=== PATIENT | female | born 1970 | race Caucasian/White ===

== ENCOUNTER 2020-03-26 13:16 | Outpatient (CLI) | payer OTHER, SELFPAY ==
--- NOTE | ~2020-03-26 | MM_ITS ---
EXAMINATION: MM screening julieth BI w elton HISTORY: Screening TECHNIQUE: Craniocaudal and mediolateral oblique 3-D tomosynthesis images were obtained and synthetic 2-D images were generated. CAD analysis was submitted and interpreted. COMPARISON: Comparison to multiple prior studies sequentially, with oldest reviewed study dated 03/21. BREAST PARENCHYMAL COMPOSITION: There are scattered areas of fibroglandular density. FINDINGS: There is no evidence of suspicious mass, calcification, or architectural distortion to sugg est malignancy in either breast. There has been no suspicious interval change. IMPRESSION: 1. No mammographic evidence of malignancy. 2. Recommend routine screening mammography in one year. BI-RADS Category 1: Negative Reviewed, dictated and finalized at location A.
== END 2020-03-26 13:17 | disposition home or self-care (01) ==
PROVIDERS: PCP Nurse Practitioner Adult Health; Visit Provider Nurse Practitioner Adult Health
DX: Z12.31 Encounter for screening mammogram for malignant neoplasm of breast (principal)
CPT/HCPCS: 77063; 77067

== ENCOUNTER 2020-07-09 07:05 | Outpatient (CLI) | payer OTHER, SELFPAY ==
--- NOTE | ~2020-07-09 | US_ITS ---
EXAMINATION: US pelvic complete w TV EXAM DATE: 07/09/2020 07:43 INDICATION: Pelvic pain. TECHNIQUE: Pelvic transabdominal and transvaginal sonogram was performed. There are multiple graysca le and Doppler images available for interpretation. There is no prior study for comparison. FINDINGS: Uterus measures 5.0 x 4.0 x 3.2 cm, is retroverted and morphologically normal. Endometria l stripe measures 6 mm, within normal limits. There is no free pelvic fluid. Right adnexa: The ovary measures 1.2 x 1.0 x 1.1 cm with focal marginal echogenic focus measuring 6 m m causing shadowing, uncertain whether or not this is within the ovary or next to it. This is of doub tful clinical significance. Ovarian vascular flow confirmed. Left adnexa: The ovary measures 1.3 x 1.2 x 0.8 cm and is morphologically normal. Ovarian vascular fl ow confirmed. IMPRESSION: Small echogenic focus along margin of right ovary, probably calcification. Ovaries are michelle th normal in size. Reviewed, dictated and finalized at location A. 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 Ovaries are both normal in size.
== END 2020-07-09 07:06 | disposition home or self-care (01) ==
LOC: ANHIMG 07:10
PROVIDERS: PCP Nurse Practitioner Adult Health; Visit Provider Nurse Practitioner
DX: R10.2 Pelvic and perineal pain (principal)
CPT/HCPCS: 76830; 76856

== ENCOUNTER 2021-05-07 07:25 | Outpatient (CLI) | payer OTHER, SELFPAY ==
--- NOTE | ~2021-05-07 | MM_ITS ---
EXAMINATION: MM screening julieth BI w elton HISTORY: Screening mammogram TECHNIQUE: Craniocaudal and mediolateral oblique 3-D tomosynthesis images were obtained and synthetic 2-D images were generated. CAD analysis was submitted and interpreted. COMPARISON: 03/26/2020, 05/24/2017 bilateral screening mammogram examinations BREAST PARENCHYMAL COMPOSITION: There are scattered areas of fibroglandular density. FINDINGS: There is no evidence of suspicious mass, calcification, or architectural distortion to sugg est malignancy in either breast. There has been no suspicious interval change. IMPRESSION: 1. No mammographic evidence of malignancy. 2. Recommend routine screening mammography in one year. BI-RADS Category 1: Negative Reviewed, dictated and finalized at location A. 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
== END 2021-05-07 07:26 | disposition home or self-care (01) ==
LOC: ANHIMG 07:27
PROVIDERS: PCP Nurse Practitioner Adult Health; Visit Provider Nurse Practitioner Adult Health
DX: Z12.31 Encounter for screening mammogram for malignant neoplasm of breast (principal)
CPT/HCPCS: 77063; 77067

== ENCOUNTER 2021-07-05 12:46 | Emergency (ER) | payer OTHER, SELFPAY ==
--- NOTE | ~2021-07-05 | CT_ITS ---
EXAMINATION: CT soft tissue neck w con EXAM DATE: 07/05/2021 15:30 INDICATION: right sided neck swelling . TECHNIQUE: Spiral CT of the neck was performed following intravenous injection of 75 mL Omnipaque 350 . Axial, coronal and sagittal images were reviewed. The dose-length product (DLP) for this examinat ion was 545.97 mGy-cm. The exposure was tailored according to patient size (auto mA exposure control ), and iterative reconstruction (ASIR) was used as additional dose reduction technique. There is no prior study for comparison. FINDINGS: Small amount of nonspecific right upper lobe groundglass opacity, nonspecific pneumonitis. Mild emphysema. The thyroid gland is unremarkable. The right mandibular gland is edematous without focal abscess. Structure which is believed to be the submandibular duct indicated on axial image 49 and 50, with a 2.5 mm calcification which could be sub mandibular duct stone indicated on axial image 46. Additional nonobstructing punctate cholelithiasis suspected also on axial image 50. Parotid glands are unremarkable. Mild generalized right-sided subma ndibular fat stranding. There is no cervical lymphadenopathy. There are no masses identified. The superior mediastinum is unremarkable. The airway is unremarkable. Parapharyngeal and pre-glottic fat planes are preserve d. The opacified vasculature is patent. The orbits are unremarkable. Visualized sinuses and mas toid air cells are well aerated. Moderate cervical arthropathy and C5-6 disc disease. IMPRESSION: 1. Right submandibular sialoadenitis, probably from obstructing 2.5 mm stone at the distal aspect of the duct indicated on axial image 46. 2. Small region right upper lobe airspace disease, nonspecific pneumonitis. Reviewed, dictated and finalized at location G. RATOR OPERATOR
[2021-07-05 12:50] VITALS: BP 134/83; PULSE 117; RESP 18; TEMP 36.6; O2SAT 96
[2021-07-05 13:17] LABS: Basophils Absolute Auto 0.1 K/mm3 (0.0-0.1); Basophils Percent Auto 0.6 % (0.2-1.2); Eosinophils Absolute Auto 0.3 K/mm3 (0-0.3); Eosinophils Percent Auto 3.3 % (0-4.4); Hematocrit 44.5 % (37.0-47.0); Hemoglobin 14.9 g/dL (12.0-15.0); Immature Granulocyte Absolute 0.04 K/mm3 (0.00-0.031); Immature Granulocyte Percent A 0.4 % (0-0.5); Lymphocytes Absolute Auto 3.03 K/mm3 (0.9-3.2); Mean Corpuscular HGB Conc 33.5 g/dl (32-36); Mean Corpuscular Hemoglobin 30.8 pg (26-34); Mean Corpuscular Volume 92.1 fl (80-100); Mean Platelet Volume 9.3 fl (7.4-10.4); Monocytes Absolute Auto 0.7 K/mm3 (0.1-0.6); Monocytes Percent Auto 7.1 % (2.6-8.5); Neutrophils Absolute Auto 5.6 K/mm3 (1.3-6.7); Neutrophils Percent Auto 57.6 % (45.5-73.1); Platelet Count Result 276 k/mm3 (150-375); Red Blood Count 4.83 M/mm3 (4.2-5.4); Red Cell Distribution Width 12.2 % (11.5-14.5); White Blood Count 9.8 K/mm3 (4.5-10.0)
[2021-07-05 13:31] LABS: Anion Gap 11 mmol/L (8-16); Blood Urea Nitrogen 15 mg/dL (7-17); CRP 0.6 mg/dL (<1.0); Calcium 10.1 mg/dL (8.4-10.2); Carbon Dioxide 27 mmol/L (22-30); Chloride 101 mmol/L (98-107); Estimated CRCL calculation 121 ml/min; Estimated Glomerular Filt Rate > 60; Glucose 174 mg/dL (65-110); Sodium 139 mmol/L (137-145)
--- NOTE | 2021-07-05 14:20 | ED.NECK ---
HPI - Neck Pain/Injury General Chief Complaint: Neck Pain/Injury Stated Complaint: Neck swelling Time Seen by Provider: 07/05/21 13:03 Source: patient Mode of arrival: ambulatory Limitations: no limitations History of Present Illness HPI Narrative: This is a 51 year old female that presents to the ER for right sided neck swelling noted since last night. Reports a painful area of swelling to the right side of the neck. Also reports some right ear pain. Reports she noted something white on the bottom of her mouth under her tongue. Denies fever, sore throat, or dyspnea. Review of Systems Review of Systems: CONSTITUTIONAL: Denies fever ENT: Reports otalgia. Denies sore throat RESPIRATORY: Denies dyspnea. All systems reviewed & are unremarkable except as noted in HPI and below PMFSH Past Medical History Medical History (Updated 07/05/21 @ 15:59 by Whit Voss PA-C) History of diabetes mellitus History of gastroesophageal reflux (GERD) History of hyperlipidemia Social History Social History (Updated 07/05/21 @ 14:20 by Whit Voss PA-C) Substance use: never Exam Narrative: GENERAL: Well-appearing, well-nourished, and in no acute distress. HEAD: Normocephalic, atraumatic. EYES: EOMI. ENT: Nares clear, no rhinorrhea or epistaxis. Mucous membranes moist. Oropharynx without tonsillar hypertrophy exudate or other lesions. Left TM pearly mix non-bulging. Right TM unable to be visualized as there is some cerumen. Bilateral external auditory canals are normal. Sialolith present on the floor of the mouth. No trismus NECK: Supple. Right sided submandibular swelling and pain, no overlying erythema CHEST: Clear to auscultation. No respiratory distress. No wheezes rales or rhonchi HEART: Regular rate and rhythm. No murmur heard. Normal peripheral pulses. EXTREMITIES: Normal range of motion. No edema. SKIN: Warm, dry, no rash. NEURO: No focal deficits. Alert and oriented x3. PSYCH: Normal mood and affect Course Vital Signs Vital signs: Vital Signs Temperature 97.8 F 07/05/21 12:50 Pulse Rate 117 H 07/05/21 12:50 Respiratory Rate 18 07/05/21 12:50 Blood Pressure 134/83 07/05/21 12:50 Pulse Oximetry 96 07/05/21 12:50 Temperature 97.8 F 07/05/21 12:50 Pulse Rate 117 H 07/05/21 12:50 Respiratory Rate 18 07/05/21 12:50 Blood Pressure 134/83 07/05/21 12:50 Pulse Oximetry 96 07/05/21 12:50 MDM - Neck Pain/Injury MDM Narrative Medical decision making narrative: Patient presents to the emergency department for right-sided neck swelling noted since last night. Mild swelling noted in the right submandibular region. Patient is afebrile and nontoxic appearing. CBC and metabolic panel without concerning findings. CT scan of the soft tissue neck shows a right submandibular sialadenitis probably from obstructing 2.5 mm stone at the distal aspect of the duct. Also shows small region of nonspecific pneumonitis. Patient will be started on oral antibiotics for possible infectious sialoadenitis, will also cover for the possible pneumonia. Patient is stable and felt appropriate for further outpatient evaluation. She was given warnings to return to the ER Lab Data Attestation: I reviewed the patient's lab results. Result diagrams: 07/05/21 13:11 07/05/21 13:11 Labs: Lab Results 07/05/21 07/05/21 Range/Units 13:11 13:11 WBC 9.8 (4.5-10.0) K/mm3 RBC 4.83 (4.2-5.4) M/mm3 Hgb 14.9 (12.0-15.0) g/dL Hct 44.5 (37.0-47.0) % MCV 92.1 (80-100) fl MCH 30.8 (26-34) pg MCHC 33.5 (32-36) g/dl RDW 12.2 (11.5-14.5) % Plt Count 276 (150-375) k/mm3 MPV 9.3 (7.4-10.4) fl Immature Gran % (Auto) 0.4 (0-0.5) % Neut % (Auto) 57.6 (45.5-73.1) % Lymph % (Auto) 31.0 (18.3-44.2) % Hudspeth % (Auto) 7.1 (2.6-8.5) % Eos % (Auto) 3.3 (0-4.4) % Baso % (Auto) 0.6 (0.2-1.2) % Lymph # (Auto) 3.03 (0.9-3.2) K/mm3 Hudspeth # (Auto) 0.7
[2021-07-05 14:25] LABS: Erythrocyte Sedimentation Rate 22 mm/hr (0-20)
--- NOTE | 2021-07-05 14:36 | PC.NURSE ---
Patient updated on need for peripheral IV access for ordered CT scan.
[2021-07-05 16:27] VITALS: BP 125/93; PULSE 83; RESP 16; O2SAT 98
== END 2021-07-05 16:35 | disposition home or self-care (01) ==
PROVIDERS: Physician Assistant; Emergency Provider Emergency Medicine; PCP Nurse Practitioner Adult Health
DX: K11.20 Sialoadenitis, unspecified (principal); E11.9 Type 2 diabetes mellitus without complications; K21.9 Gastro-esophageal reflux disease without esophagitis; E78.5 Hyperlipidemia, unspecified
CPT/HCPCS: 36415; 70491; 80048; 85025; 85652; 86140; 99284; Q9967

== ENCOUNTER 2022-04-30 01:32 | Day surgery (SDC) | payer OTHER, SELFPAY ==
[2022-04-22 11:38] VITALS: BMI 32.3
[2022-04-30 08:48] VITALS: BP 138/88; PULSE 85; RESP 18; TEMP 36.1; O2SAT 96
--- NOTE | 2022-04-30 08:54 | PM.HPGS ---
History of Present Illness History of Present Illness Consent: Risks, benefits, and alternatives have been discussed and questions answered. Patient agrees to proceed with procedure. Chief complaint: neoplasm screening Narrative: Yesenia Garland is a 51 year old female Referred for colon cancer screening. She had a polyp or 2 removed about 5 years ago at other hospital. Review of Systems Review of Systems: All systems reviewed & are unremarkable except as noted in HPI and below PMFSH Past Medical History Medical History History of diabetes mellitus History of gastroesophageal reflux (GERD) History of hyperlipidemia Social History Social History Smoking packs per day: 0.5 Smoking cigarettes per day: 10.0 Years smoked: 40 Smoking pack-years: 20.00 Smoking status: Current every day smoker Tobacco type: cigarettes Substance use: current Substance use type: marijuana Last use: Daily Living arrangements: with family Spiritual care concerns: No Meds Home Medications and Allergies Home Medications Medication Instructions Recorded Confirmed Type albuterol sulfate 90 mcg/actuation 2 inh inhalation Q4H PRN Shortness 04/22/22 04/30/22 History aerosol inhaler Of Breath atorvastatin 20 mg tablet 20 mg PO HS 04/22/22 04/30/22 History celecoxib 200 mg capsule 200 mg PO DAILY 04/22/22 04/30/22 History liraglutide 0.6 mg/0.1 mL (18 mg/3 1.8 mg subcut DAILY 04/22/22 04/30/22 History mL) subcutaneous pen injector (Victoza 3-Galileo) metformin 500 mg tablet,extended 500 mg PO DAILY 04/22/22 04/30/22 History release 24 hr [id number]-Of-znuw-minerals 18 1 tablet PO DAILY 04/22/22 04/30/22 History mg-0.4 mg tablet Allergies Allergy/AdvReac Type Severity Reaction Status Date / Time diphenhydramine Allergy Hives Verified 04/30/22 08:47 latex AdvReac Itching Verified 04/30/22 08:47 Vital Signs Vital Signs - 24 hr 04/30/22 08:48 Temperature 36.1 C L Pulse Rate 85 Respiratory Rate 18 Blood Pressure 138/88 Pulse Oximetry 96 Oxygen Delivery Room Air Exam Const: General: alert Orientation/consciousness: patient oriented x3 Resp: Auscultation: clear to auscultation bilaterally Cardio: Rhythm: regular rhythm GI: GI Palp: Yes Soft to palpation and No Tenderness to palpation present (GI) Neuro: General: patient oriented x3 Assessment and Plan Assessment and plan (1) Colon cancer screening: Code(s): Z12.11 - Encounter for screening for malignant neoplasm of colon Status: Acute Assessment and Plan: Colonoscopy with possible biopsy or polypectomy or cautery or injection of substances.
[2022-04-30] MEDS: LACTATED RINGERS 1,000 ML 150 ML IV CONT (08:58)
--- NOTE | 2022-04-30 09:02 | WPDANESEPPF ---
Anes - Initial Pre Proc Eval Procedure: Operation Date: 04/30/22 10:00 Proposed Procedures p Screening Colonoscopy - Randy Hudson MD Date/Time: 04/30/22 09:02 Surgeon: Randy Hudson MD Pre Op Diagnosis: neoplasm screening Patient Data Age: 51 Gender: F Height: 1.68 m Weight: 88.7 kg Last Vital Signs Temp 36.1 C L 04/30/22 08:48 Pulse 85 04/30/22 08:48 Resp 18 04/30/22 08:48 BP 138/88 04/30/22 08:48 Pulse Ox 96 04/30/22 08:48 O2 Del Method Room Air 04/30/22 08:48 Allergies Allergy/AdvReac Type Severity Reaction Status Date / Time diphenhydramine Allergy Hives Verified 04/30/22 08:47 latex AdvReac Itching Verified 04/30/22 08:47 Home Medications Medication Instructions Recorded Confirmed Type albuterol sulfate 90 mcg/actuation 2 inh inhalation Q4H PRN Shortness 04/22/22 04/30/22 History aerosol inhaler Of Breath atorvastatin 20 mg tablet 20 mg PO HS 04/22/22 04/30/22 History celecoxib 200 mg capsule 200 mg PO DAILY 04/22/22 04/30/22 History liraglutide 0.6 mg/0.1 mL (18 mg/3 1.8 mg subcut DAILY 04/22/22 04/30/22 History mL) subcutaneous pen injector (Victoza 3-Galileo) metformin 500 mg tablet,extended 500 mg PO DAILY 04/22/22 04/30/22 History release 24 hr uiytptncmsut-Ev-wroi-minerals 18 1 tablet PO DAILY 04/22/22 04/30/22 History mg-0.4 mg tablet Patient hx anesthesia problems: none Family hx anesthesia problems: none Results Review: All pre-operative results and documents have been reviewed as part of the pre-operative evaluation. [facility] Past Medical History Medical History History of diabetes mellitus History of gastroesophageal reflux (GERD) History of hyperlipidemia Social History Social History Smoking packs per day: 0.5 Smoking cigarettes per day: 10.0 Years smoked: 40 Smoking pack-years: 20.00 Smoking status: Current every day smoker Tobacco type: cigarettes Substance use: current Substance use type: marijuana Last use: Daily Living arrangements: with family Spiritual care concerns: No Anes - Eval Final PreProcedure Day of Procedure 04/30/22 09:02 Patient weight: obese Heart: regular rate and rhythm Lungs: clear to auscultation Airway: Mallampati scale class 1 Neurological: alert and oriented Last oral intake: >/= 8 hours ASA classification: III Emergent: no Anesthetic plan: proceed Anesthesia type and monitoring: general GIVS and standard monitoring Results Review: All pre-operative results and documents have been reviewed as part of the pre-operative evaluation. Informed Consent: The patient's anesthetic plan and its attendant risks and benefits were discussed with the patient/family/POA. Questions were solicited and answers provided to the satisfaction of the patient/family/POA.
[2022-04-30 09:07] LABS: Glucose Point of Care 120 mg/dl (65-105)
[2022-04-30 09:45] VITALS: BP 108/71; PULSE 74; RESP 18; O2SAT 95
[2022-04-30 09:55] VITALS: BP 132/88; PULSE 70; RESP 18; O2SAT 94
[2022-04-30 10:05] VITALS: BP 126/86; PULSE 69; RESP 18; O2SAT 94
== END 2022-04-30 10:15 | disposition home or self-care (01) ==
PROVIDERS: PCP Nurse Practitioner Adult Health; Visit Provider Internal Medicine Gastroenterology
PROC: 0DJD8ZZ Inspection of Lower Intestinal Tract, Via Natural or Artificial Opening Endoscopic (ICD-10-PCS; CPT 45378; principal; 2022-04-30 10:00)
DX: Z12.11 Encounter for screening for malignant neoplasm of colon (principal); Z86.010 Personal history of colon polyps; K57.30 Diverticulosis of large intestine without perforation or abscess without bleeding; E11.9 Type 2 diabetes mellitus without complications; K21.9 Gastro-esophageal reflux disease without esophagitis; E78.5 Hyperlipidemia, unspecified; F17.210 Nicotine dependence, cigarettes, uncomplicated
CPT/HCPCS: 45378; 82948; J2704; J7120